=== PATIENT | female | born 1950 ===

== ENCOUNTER 2017-05-09 16:12 | Inpatient (IN) | payer MEDICARE, OTHER ==
[2017-05-09 16:12] VITALS: BMI 35.4
[~2017-05-09 16:12] MED LIST: Enoxaparin 40 mg Syringe SC ONE
--- NOTE | 2017-05-09 16:43 | C.PDOC ---
History Of Present Illness REFERRED DR MEYER FOR ADMISSION. PS INTERMIT CP X 3 MONTHS, PERSIST. CURRENTLY ASYMPT. LAST CARDIAC EVAL 4 YRS AGO. +ASSOC DIZZY, DIAPH. HO HTN UNCONTROLL DM, MR. ALSO W INTERMIT R LEG PAIN X 1 YR. STATES PMD. EXAM LUNGS NEG EXT GOOD PERFUSION, WARM NO EDEMA REMAINDER NEG Time Seen by Provider: 05/09/17 16:23 History Per: Patient History/Exam Limitations: no limitations Onset/Duration Of Symptoms: Intermittent Episodes Current Symptoms Are (Timing): Gone Associated Symptoms: Diaphoresis, Other (DIZZINESS) Recent travel outside of the [place]: No Past Medical History Reviewed: Historical Data, Nursing Documentation, Vital Signs Vital Signs: Last Vital Signs Temp 98.0 F 05/09/17 16:42 Pulse 77 05/09/17 17:44 Resp 18 05/09/17 17:44 BP 129/67 05/09/17 17:44 Pulse Ox 97 05/09/17 17:44 - Medical History PMH: Arthritis, Asthma, Diverticulitis, Fractures ( A CHILD L WRIST FX), Gastritis, HTN, Hypercholesterolemia, Osteoporosis Surgical History: Cholecystectomy - [facility] Procedures CORONAR ARTERIOGR-2 CATH (07/08/13) LEFT HEART CARDIAC CATH (07/08/13) LT HEART ANGIOCARDIOGRAM (07/08/13) Family History: States: Unknown Family Hx - Social History Hx Alcohol Use: No Hx Substance Use: No - Immunization History Hx Tetanus Toxoid Vaccination: No Hx Influenza Vaccination: No Hx Pneumococcal Vaccination: No Review Of Systems Except As Marked, All Systems Reviewed And Found Negative. Constitutional: Negative for: Fever, Chills Cardiovascular: Positive for: Chest Pain Respiratory: Negative for: Cough, Shortness of Breath, Wheezing Gastrointestinal: Negative for: Vomiting, Abdominal Pain Musculoskeletal: Positive for: Leg Pain Skin: Negative for: Rash Neurological: Positive for: Dizziness. Negative for: Weakness, Numbness Physical Exam - Physical Exam Appears: Non-toxic, No Acute Distress Skin: Normal Color, Warm, Dry Head: Atraumatic, Normacephalic Oral Mucosa: Moist Chest: Symmetrical Cardiovascular: Rhythm Regular Respiratory: Normal Breath Sounds, No Accessory Muscle Use, No Rales, No Rhonchi , No Wheezing Gastrointestinal/Abdominal: Soft, No Tenderness, No Guarding, No Rebound Back: Normal Inspection Extremity: Normal ROM, Capillary Refill (< 2 SEC.), Other (GOOD PERFUSION, WARM NO EDEMA) Neurological/Psych: Oriented x3, Normal Speech, Normal Cognition ED Course And Treatment - Laboratory Results Result Diagrams: 05/09/17 17:15 05/09/17 16:57 ECG: Interpreted By Me ECG Rhythm: Sinus Rhythm ECG Interpretation: Normal Rate From EC O2 Sat by Pulse Oximetry: 96 (RA) Pulse Ox Interpretation: Normal Progress - Re-Evaluation Re-evaluation Note: 05/09/17 16:50 D/W DR THOMAS WILL ADMIT. LABS PENDING 05/09/17 18:11 FS 36. D50 GIVEN - Data Reviewed Data Reviewed: Lab, Diagnostic imaging, EKG, Old records - Continuity of Care Discussed patient case with:: Patient, Family-HIPPA compliant, PMD Disposition Counseled Patient/Family Regarding: Studies Performed, Diagnosis - Disposition Disposition: HOSPITALIZED Disposition Time: 17:31 Condition: STABLE - POA Present On Arrival: None - Clinical Impression Clinical Impression: Chest pain, Left leg claudication - Scribe Statement The provider has reviewed the documentation as recorded by the Scribe SM All medical record entries made by the Scribe were at my direction and personally dictated by me. I have reviewed the chart and agree that the record accurately reflects my personal performance of the history, physical exam, medical decision making, and the department course for this patient. I have also personally directed, reviewed, and agree with the discharge instructions and disposition. Decision To Admit - Pt Status Changed To: Hospital Disposition Of: Inpatient - Admit Certification Admit to Inpatient:: After my assessment, the patient will require hospitalization for at least two midnights. This is because of the severity of symptoms shown, intensity of services needed, and/or the medical risk in this patient being treated as an outpatient. - InPatient: Physician Admission Certification: I certify that this patient requires 2 or more midnights of care for the following reason:: SEE NOTE - . Bed Request Type: Telemetry Admitting Physician: Soren Thomas Jr. Patient Diagnosis: Chest pain, Left leg claudication
[2017-05-09 17:09] LABS: CHLORIDE 101 mmol/L (98-107); SODIUM 139 mmol/L (132-148)
[2017-05-09 17:11] LABS: BILIRUBIN,TOTAL 1.5 mg/dL (0.2-1.3); GFR AFRICAN-AMERICAN > 60; POTASSIUM 5.2 mmol/L (3.6-5.2)
[2017-05-09 17:12] LABS: ALKALINE PHOSPHATASE 190 U/L (38-126); ALT/SGPT 57 U/L (9-52); AST/SGOT 78 U/L (14-36); BLOOD UREA NITROGEN 17 mg/dL (7-17); CARBON DIOXIDE 25 mmol/L (22-30); GLUCOSE,RANDOM 106 mg/dL (65-105); TOTAL PROTEIN 8.5 g/dL (6.3-8.3)
[2017-05-09 17:13] LABS: CALCIUM 9.4 mg/dl (8.6-10.4)
[2017-05-09 17:20] LABS: BASO # 0.1 K/uL (0.0-0.2); BASO % 0.6 % (0.0-2.0); EOS # 0.1 K/uL (0.0-0.7); EOS % 1.2 % (0.0-4.0); HEMATOCRIT 40.1 % (34.0-47.0); LYMPH # 3.7 K/uL (1.0-4.3); LYMPH % 36.2 % (20.0-40.0); MEAN CELL VOLUME 94.6 fL (81.0-99.0); MEAN CORPUSCULAR HEMOGLOBIN 31.8 pg (27.0-31.0); MEAN CORPUSCULAR HGB CONC 33.7 g/dL (33.0-37.0); MEAN PLATELET VOLUME 10.7 fL (7.2-11.7); MONO # 0.7 K/uL (0.0-0.8); MONO % 7.2 % (0.0-10.0); RED CELL DISTRIBUTION WIDTH 13.5 % (11.5-14.5); WHITE BLOOD COUNT 10.3 K/uL (4.8-10.8)
[2017-05-09 17:27] LABS: INR 1.1
[2017-05-09] MEDS ORDERED: Dextrose 50% SYRINGE Inj (50 ml) IVP STA (18:11)
[2017-05-09] MEDS ORDERED: Dextrose 50% SYRINGE Inj (50 ml) ONE (18:13)
--- NOTE | 2017-05-09 18:49 | RAD ---
HISTORY: chest pain COMPARISON: None available. TECHNIQUE: Chest, one view. FINDINGS: Examination limited by habitus. LUNGS: No focal consolidation. Probable 8 x 10 mm and 3 mm left apical calcified granuloma. Please note that chest x-ray has limited sensitivity for the detection of pulmonary masses. PLEURA: No significant pleural effusion identified. No definite pneumothorax . CARDIOVASCULAR: Heart size appears within normal limits. Atherosclerotic calcifications of the aorta. OSSEOUS STRUCTURES: Degenerative changes of the spine. VISUALIZED UPPER ABDOMEN: Unremarkable. OTHER FINDINGS: None. IMPRESSION: No focal consolidation, significant pleural effusion, or definite pneumothorax identified. Probable 8 x 10 mm and 3 mm left apical calcified granuloma.
[2017-05-09] MEDS ORDERED: PROPYLENE GLYC TP SCH (21:30)
[2017-05-09] MEDS ORDERED: Albuterol 0.083% Inhal Sol (2.5 mg/3 mL) UD IH PRN (21:30)
[2017-05-09] MEDS ORDERED: BETAMETHASONE TP SCH (21:30)
--- NOTE | 2017-05-09 21:55 | CP.PCM.HP ---
History of Present Illness - History of Present Illness History of Present Illness: PGY1 Note for Dr. Thomas HPI: Patient is a 66 y/o lady with a PMH of DM present to the ER with a CC of chest pain and SOB for 2 day duration. It gets better with SL Nitro and worse with walking. She describes the pain as someone pressing hard on her chest. It radiates to the L. shoulder and is intermittent in timing. She has had chest pain before but denies prior episodes like this. She is complaining of fevers, chills, nausea, cough, diaphoresis, SOB, dizzy, weakness, visual and speech changes (Slurring), confusion and a GUAJARDO. She is also complaining of abdominal pain and leg pain. She denies Vomiting, Diarrhea and constipation or rash. She denies sick contracts or recent travel. PMH: DM, osteoporosis, back pain, arthritis, and is on home O2 but does not know why PSH: Open bayron, hysterectomy, R. breast bx, L. Pinky surgery, Carpal tunnel surgery, R. ovarian cyst removed FH: mom = heart and kidney problems, Dad = heart problems SH: , lives with son, daughter and granddaughter; smoked 2-3ppd for 50 years but quit 8 years ago. Meds: Albuterol inhaler, ventolin HFA, Proair, alprazolam, betamethasone, flexeriol, voltaran, furosemide, Novolog 70/30, levoceterizine dihydrochloride, lidoderm patch, montelukast, SL nitro, oxycodone, valsartan Allergies: ASA Code: FULL CODE ROS: Const = 20lb WL in 3month HEENT = wears glasses, blurry vision Lungs = home 02 (2L) Heart = No echo, cath 4 years ago "normal" GI = endoscopy, colonoscopy 2-3y ago, diarrhea, constipation, occasionaly blood in stool Renal = none = blood in urine Breast = breast bx MSK = hx of falls, back pain, walks with a cane Neuro = denies CVA or seizures, + memory changes, weakness, numbness Endo = denies thyroid or adrenal problems, + DM Psych = denies recent hospitlizations Skin = no rashes Heme = anemia with a transfusion 20-30years ago secondary to heavy menstrual bleeding Onc = No history of cancer ID = Denies MRSA, c.diff, HIV Present on Admission - Present on Admission Any Indicators Present on Admission: No History of DVT/PE: No History of Uncontrolled Diabetes: Yes Urinary Catheter: No Decubitus Ulcer Present: No History Surgical Site Infection Following: None Review of Systems - Constitutional Constitutional: As Per HPI - EENT Eyes: As Per HPI Ears: As Per HPI Nose/Mouth/Throat: As Per HPI - Breasts Breasts: As Per HPI - Cardiovascular Cardiovascular: As Per HPI - Respiratory Respiratory: As Per HPI - Gastrointestinal Gastrointestinal: As Per HPI - Genitourinary Genitourinary: As Per HPI - Reproductive: Female Reproductive:Female: As Per HPI - Menstruation Menstruation: As Per HPI - Musculoskeletal Musculoskeletal: As Per HPI - Integumentary Integumentary: As Per HPI - Neurological Neurological: As Per HPI - Psychiatric Psychiatric: As Per HPI - Endocrine Endocrine: As Per HPI - Hematologic/Lymphatic Hematologic: As Per HPI Past Patient History - Tetanus Immunizations Tetanus Immunization: Unknown - Past Medical History & Family History Past Medical History?: Yes - Past Social History Smoking Status: Former Smoker - CARDIAC Hx Hypercholesterolemia: Yes Hx Hypertension: Yes - PULMONARY Hx Asthma: Yes - HEENT Hx HEENT Problems: Yes (blurry vision sometimes) - ENDOCRINE/METABOLIC Hx Endocrine Disorders: Yes Hx Diabetes Mellitus Type 2: Yes - MUSCULOSKELETAL/RHEUMATOLOGICAL Hx Arthritis: Yes Hx Fractures: Yes ( A CHILD L WRIST FX) Hx Osteoporosis: Yes - GASTROINTESTINAL Hx Diverticulitis: Yes Hx Gastritis: Yes - GENITOURINARY/GYNECOLOGICAL Hx Genitourinary Disorders: Yes Hx Urinary Tract Infection: Yes Other/Comment: CYSTS REMOVED BILATERAL BREASTS - PSYCHIATRIC Hx Substance Use: No - SURGICAL HISTORY Hx Cholecystectomy: Yes - ANESTHESIA Hx Anesthesia: Yes Hx Anesthesia Reactions: No Hx Malignant Hyperthermia: No Meds Allergies/Adverse Reactions: Allergies Allergy/AdvReac Type Severity Reaction Status Date / Time aspirin Allergy Verified 05/09/17 16:50 Physical Exam - Constitutional Appears: Well, Non-toxic, No Acute Distress - Head Exam Head Exam: ATRAUMATIC, NORMAL INSPECTION, NORMOCEPHALIC - Eye Exam Eye Exam: EOMI - ENT Exam ENT Exam: Mucous Membranes Moist - Neck Exam Neck exam: Positive for: Normal Inspection - Respiratory Exam Respiratory Exam: Clear to Auscultation Bilateral, NORMAL BREATHING PATTERN - Cardiovascular Exam Cardiovascular Exam: REGULAR RHYTHM - GI/Abdominal Exam GI & Abdominal Exam: Normal Bowel Sounds, Soft. absent: Distended, Tenderness - Neurological Exam Neurological exam: Alert, Oriented x3 Additional comments: numbness on L. great toe - Psychiatric Exam Psychiatric exam: Normal Affect, Normal Mood - Skin Skin Exam: Dry, Intact, Normal Color, Warm Results - Vital Signs Recent Vital Signs: Last Vital Signs Temp 97.6 F 05/09/17 20:39 Pulse 76 05/09/17 20:39 Resp 20 05/09/17 20:39 BP 147/77 05/09/17 20:39 Pulse Ox 96 05/09/17 20:39 - Labs Result Diagrams: 05/09/17 17:15 05/09/17 16:57 Labs: Laboratory Results - last 24 hr 05/09/17 05/09/17 18:12 18:45 POC Glucose (mg/dL) 38 L* 194 H Assessment & Plan - Assessment and Plan (Free Text) Assessment: Chest Pain * EZRA * First trop negative * F/U trop x2 * F/U EKG * Cards (Reed) - F/U reccs * Lovenox 40 SC One time in case Cath tomorrow SOB * Continue home meds * Proair HFA * Singulair * NC 02 2L DM * Sliding scale * Accuchecks * F/U A1c PPX * Pepcid 20mg BID * Lovenox - Date & Time Date: 05/09/17 Time: 23:47 Decision To Admit - Pt Status Changed To: Hospital Disposition Of: Inpatient - Admit Certification Admit to Inpatient:: After my assessment, the patient will require hospitalization for at least two midnights. This is because of the severity of symptoms shown, intensity of services needed, and/or the medical risk in this patient being treated as an outpatient. - InPatient: Physician Admission Certification:: . - . Bed Request Type: Telemetry Admitting Physician: Soren Thomas Jr.
[2017-05-09] MEDS: Lidocaine 5% Patch TD SCH (22:05)
[2017-05-09] MEDS ORDERED: Sodium Chloride 0.9% 1,000 ML IV SCH (22:15)
[2017-05-09] MEDS: Home Med 1 UNIT (Diclofenac Sodium [Voltaren] 100 GM) TP SCH (23:23)
[2017-05-10] MEDS: Home Med 1 UNIT (Diclofenac Sodium [Voltaren] 100 GM) TP SCH ×2 (04:02→09:15)
[2017-05-10 06:54] LABS: EOS # 0.1 K/uL (0.0-0.7); EOS % 1.3 % (0.0-4.0); MEAN CELL VOLUME 94.9 fL (81.0-99.0); MONO # 0.6 K/uL (0.0-0.8); NRBC % 0.1 % (0.0-2.0)
[2017-05-10 07:00] LABS: INR 1.1
[2017-05-10 07:01] LABS: BASO % 0.5 % (0.0-2.0); HEMATOCRIT 39.1 % (34.0-47.0); LYMPH % 34.7 % (20.0-40.0); MEAN CORPUSCULAR HEMOGLOBIN 31.6 pg (27.0-31.0); MEAN CORPUSCULAR HGB CONC 33.2 g/dL (33.0-37.0); MEAN PLATELET VOLUME 10.9 fL (7.2-11.7); MONO % 7.2 % (0.0-10.0); RED CELL DISTRIBUTION WIDTH 13.5 % (11.5-14.5); WHITE BLOOD COUNT 8.8 K/uL (4.8-10.8)
[2017-05-10 07:17] LABS: CHLORIDE 105 mmol/L (98-107)
[2017-05-10 07:18] LABS: POTASSIUM 4.1 mmol/L (3.6-5.2); SODIUM 138 mmol/L (132-148)
[2017-05-10 07:20] LABS: AST/SGOT 56 U/L (14-36); BILIRUBIN,TOTAL 0.6 mg/dL (0.2-1.3); CARBON DIOXIDE 25 mmol/L (22-30); GFR AFRICAN-AMERICAN > 60
[2017-05-10 07:21] LABS: ALKALINE PHOSPHATASE 194 U/L (38-126); ALT/SGPT 67 U/L (9-52); BLOOD UREA NITROGEN 14 mg/dL (7-17); CALCIUM 8.9 mg/dl (8.6-10.4); GLUCOSE,RANDOM 204 mg/dL (65-105)
[2017-05-10] MEDS ORDERED: (Novolin R) Insulin Human Regular 100 units/ml vial SC SCH (07:30)
--- NOTE | 2017-05-10 07:32 | CP.PCM.PN ---
<Carlos EnriqueJohanny elder - Last Filed: 05/10/17 09:23> Subjective - Date & Time of Evaluation Date of Evaluation: 05/10/17 Time of Evaluation: 07:00 - Subjective Subjective: Medicine Note for Dr. Thomas Patient was seen and examined at bedside. Patient reports she feels well. She has intermittent right sided chest pain. Denied fever, chills, headache, chest pain, abdominal pain, n/v/d/c, or urinary symptoms. Objective - Vital Signs/Intake and Output Vital Signs (last 24 hours): Temp Pulse Resp BP Pulse Ox 97.9 F 72 20 155/82 H 99 05/10/17 04:39 05/10/17 06:00 05/10/17 04:39 05/10/17 06:04 05/10/17 04:39 Intake and Output: 05/10/17 05/10/17 06:59 18:59 Intake Total 920 Balance 920 - Medications Medications: Current Medications Acetaminophen (Tylenol 325mg Tab) 650 mg PO Q6 PRN PRN Reason: Pain, moderate (4-7) Last Admin: 05/09/17 23:04 Dose: 650 mg Albuterol Sulfate (Albuterol 0.083% Inhal Kassie (2.5 Mg/3 Ml) Ud) 2.5 mg IH Q8H PRN PRN Reason: Shortness of Breath Cyclobenzaprine HCl (Flexeril) 10 mg PO Q8H PRN PRN Reason: spasm Last Admin: 05/09/17 22:05 Dose: 10 mg Docusate Sodium (Colace) 100 mg PO BID PRN PRN Reason: Constipation Famotidine (Pepcid) 20 mg PO BID [facility] Last Admin: 05/09/17 23:04 Dose: 20 mg Furosemide (Lasix) 40 mg PO DAILY [facility] Home Med (Betamethasone/Propylene Glyc [Betamethasone Dp Aug 0.05% Crm]) 50 gm TP BID [facility] Last Admin: 05/09/17 23:22 Dose: Not Given Home Med (Diclofenac Sodium [Voltaren]) 100 gm TP Q6H [facility] Last Admin: 05/10/17 04:02 Dose: Not Given Sodium Chloride (Sodium Chloride 0.9%) 1,000 mls @ 100 mls/hr IV .Q10H [facility] Last Admin: 05/09/17 23:05 Dose: 100 mls/hr Insulin Human Regular (Novolin R) 0 unit SC ACHS [facility] PRN Reason: Protocol Lidocaine (Lidoderm) 1 ea TD Q24H [facility] Last Admin: 05/09/17 22:05 Dose: 1 ea Losartan Potassium (Cozaar) 100 mg PO DAILY [facility] Metoprolol Tartrate (Lopressor) 25 mg PO Q6 [facility] Last Admin: 05/10/17 06:04 Dose: 25 mg Montelukast Sodium (Singulair) 10 mg PO DAILY [facility] Nitroglycerin (Nitrostat Sl Tab) 0.4 mg SL Q5M PRN PRN Reason: chest pain Ondansetron HCl (Zofran Inj) 4 mg IVP Q6 PRN PRN Reason: Nausea/Vomiting - Labs Labs: 05/10/17 06:39 PT 12.2 SECONDS (9.7-12.2) 05/10/17 06:39 INR 1.1 05/10/17 06:39 APTT 30 SECONDS (21-34) 05/10/17 06:39 - Constitutional Appears: No Acute Distress - Head Exam Head Exam: NORMAL INSPECTION, NORMOCEPHALIC - Eye Exam Eye Exam: EOMI, Normal appearance, PERRL Pupil Exam: NORMAL ACCOMODATION - ENT Exam ENT Exam: Mucous Membranes Dry - Respiratory Exam Respiratory Exam: Clear to Ausculation Bilateral, NORMAL BREATHING PATTERN. absent: Decreased Breath Sounds - Cardiovascular Exam Cardiovascular Exam: REGULAR RHYTHM, RRR, +S1, +S2 - GI/Abdominal Exam GI & Abdominal Exam: Soft, Normal Bowel Sounds. absent: Distended, Tenderness - Extremities Exam Extremities Exam: Normal Inspection. absent: Pedal Edema, Tenderness - Neurological Exam Neurological Exam: Alert, Awake, Oriented x3 - Psychiatric Exam Psychiatric exam: Normal Affect, Normal Mood - Skin Skin Exam: Dry, Intact, Normal Color, Warm Assessment and Plan - Assessment and Plan (Free Text) Plan: Chest Pain r/o ACS * EZRA x3 - negative and 3 EKGs - NSR * Patient with unstable angina, sent from Dr. Mcbride's office * Cardiology consulted - Dr. Mcbride - help appreciated * Nitrostat 0.4mg SL Q5M PRN for chest pain * ECHO 11/2014- LVEF 67% * Cardiac Cath tomorrow * f/u lipid panel, ECHO Transaminitis * 78/57 * Downtrending today * Continue to monitor DM * Accuchecks * ISS-medium * Patient takes 65units of novolog 65 units BIDAC * A1c: 9.1 HTN * Lasix 40mg PO daily * Cozaar 100mg PO daily * Lopressor 25mg PO Q6H SOB * Continue home meds: Proair HFA, Singulair and oxygen NC 2L * (patient is on home O2) Chronic Back Pain * Flexeril 10mg PO Q8H PRN Incidental finding on CXR * Probable 8 x 10 x 3 mm left apical calcified granuloma PPX * GI PPX: Pepcid 20mg BID * DVT PPX: Heparin [id number] * HHD, NPO tonight for cath tomorrow DW Ligia Berry DO, PGY-1 <Soren Thomas Jr. - Last Filed: 05/11/17 16:07> Objective - Vital Signs/Intake and Output Vital Signs (last 24 hours): Temp Pulse Resp BP Pulse Ox 98.2 F 62 17 111/67 96 05/11/17 07:40 05/11/17 08:27 05/11/17 07:40 05/11/17 07:40 05/11/17 07:40 Intake and Output: 05/11/17 05/11/17 06:59 18:59 Intake Total 580 Balance 580 - Medications Medications: Current Medications Acetaminophen (Tylenol 325mg Tab) 650 mg PO Q6 PRN PRN Reason: Pain, moderate (4-7) Last Admin: 05/09/17 23:04 Dose: 650 mg Albuterol Sulfate (Albuterol 0.083% Inhal Kassie (2.5 Mg/3 Ml) Ud) 2.5 mg IH Q8H PRN PRN Reason: Shortness of Breath Clopidogrel Bisulfate (Plavix) 75 mg PO DAILY [facility] Cyclobenzaprine HCl (Flexeril) 10 mg PO Q8H PRN PRN Reason: spasm Last Admin: 05/11/17 00:13 Dose: 10 mg Docusate Sodium (Colace) 100 mg PO BID PRN PRN Reason: Constipation Last Admin: 05/10/17 09:12 Dose: 100 mg Famotidine (Pepcid) 20 mg PO BID [facility] Last Admin: 05/11/17 10:15 Dose: Not Given Furosemide (Lasix) 40 mg PO DAILY [facility] Last Admin: 05/11/17 10:15 Dose: Not Given Heparin Sodium (Porcine) (Heparin) 5,000 units SC Q12 [facility] Last Admin: 05/10/17 21:39 Dose: 5,000 units Home Med (Betamethasone/Propylene Glyc [Betamethasone Dp Aug 0.05% Crm]) 50 gm TP BID [facility] Last Admin: 05/09/17 23:22 Dose: Not Given Home Med (Diclofenac Sodium [Voltaren]) 100 gm TP Q6H [facility] Last Admin: 05/10/17 09:15 Dose: Not Given Sodium Chloride (Sodium Chloride 0.9%) 1,000 mls @ 80 mls/hr IV .[id number] [facility] Stop: 05/12/17 02:00 Insulin Human Regular (Novolin R) 0 unit SC ACHS [facility] PRN Reason: Protocol Last Admin: 05/11/17 11:54 Dose: Not Given Lidocaine (Lidoderm) 1 ea TD Q24H [facility] Last Admin: 05/10/17 21:38 Dose: Not Given Losartan Potassium (Cozaar) 100 mg PO DAILY [facility] Last Admin: 05/11/17 10:15 Dose: Not Given Metoprolol Tartrate (Lopressor) 25 mg PO Q6 [facility] Last Admin: 05/11/17 12:45 Dose: Not Given Montelukast Sodium (Singulair) 10 mg PO DAILY [facility] Last Admin: 05/11/17 10:15 Dose: Not Given Nitroglycerin (Nitrostat Sl Tab) 0.4 mg SL Q5M PRN PRN Reason: chest pain Last Admin: 05/10/17 11:59 Dose: 0.4 mg Ondansetron HCl (Zofran Inj) 4 mg IVP Q6 PRN PRN Reason: Nausea/Vomiting Rosuvastatin Calcium (Crestor) 10 mg PO HS [facility] - Labs Labs: 05/11/17 07:00 05/11/17 07:00 PT 12.2 SECONDS (9.7-12.2) 05/10/17 06:39 INR 1.1 05/10/17 06:39 APTT 30 SECONDS (21-34) 05/10/17 06:39 Attending/Attestation - Attestation I have personally seen and examined this patient.: Yes I have fully participated in the care of the patient.: Yes I have reviewed all pertinent clinical information, including history, physical exam and plan: Yes Notes (Text): 05/11/17 16:07 Agree with resident note and plan of care
[2017-05-10 07:33] LABS: ALB/GLOB RATIO 0.8 (1.0-2.1)
--- NOTE | 2017-05-10 08:44 | CP.PCM.CON ---
<StevenModesto mosqueda - Last Filed: 05/10/17 16:55> History of Present Illness - History of Present Illness History of Present Illness: CC: Chest pain at rest relieved by sublingual nitro Patient is a 66 y/o f with a PMH of DM, COPD, HLD, HTN, Metabolic Syndrome, Morbid Obesity, previous Cath and abnormal lexiscan sent from the cardiology clinic with a CC of chest pain and SOB for 3months. It gets better with SL Nitro and worse with walking; admits to not being able to lie flat and needing 4 pillows to sleep. She describes the pain as someone pressing hard on her chest. It radiates to the L. shoulder and is intermittent in timing. She states it is also associated with nausea and diaphoresis when it happens. She has had chest pain before but denies prior episodes like this. She is not complaining of current fevers, chills, nausea, cough, diaphoresis, SOB, dizzy, weakness, visual and speech changes (Slurring), confusion and a GUAJARDO. She is also complaining of abdominal pain and leg pain. She denies Vomiting, Diarrhea and constipation or rash. She denies sick contracts or recent travel. PMH: DM on insulin, osteoporosis, back pain, arthritis, and is on home O2, HTN, HLD PSH: Open bayron, hysterectomy, R. breast bx, L. Pinky surgery, Carpal tunnel surgery, R. ovarian cyst removed, cath 4 years ago with normal results and preserved EF, abnormal lexiscan/nuclear stress previous to that FH: mom = heart and kidney problems, Dad = heart problems SH: , lives with son, daughter and granddaughter; smoked 2-3ppd for 50 years but quit 8 years ago. Meds: Albuterol inhaler, ventolin HFA, Proair, alprazolam, betamethasone, flexeriol, voltaran, furosemide, Novolog 70/30, levoceterizine dihydrochloride, lidoderm patch, montelukast, SL nitro, oxycodone, valsartan Allergies: ASA (upets stomach) Code: FULL CODE Review of Systems - Constitutional Constitutional: As Per HPI Past Patient History - Infectious Disease Hx of Infectious Diseases: None - Tetanus Immunizations Tetanus Immunization: Unknown - Past Medical History & Family History Past Medical History?: Yes - Past Social History Smoking Status: Former Smoker - CARDIAC Hx Hypercholesterolemia: Yes Hx Hypertension: Yes - PULMONARY Hx Asthma: Yes - HEENT Hx HEENT Problems: Yes (blurry vision sometimes) - ENDOCRINE/METABOLIC Hx Endocrine Disorders: Yes Hx Diabetes Mellitus Type 2: Yes - MUSCULOSKELETAL/RHEUMATOLOGICAL Hx Arthritis: Yes Hx Fractures: Yes ( A CHILD L WRIST FX) Hx Osteoporosis: Yes - GASTROINTESTINAL Hx Diverticulitis: Yes Hx Gastritis: Yes - GENITOURINARY/GYNECOLOGICAL Hx Genitourinary Disorders: Yes Hx Urinary Tract Infection: Yes Other/Comment: CYSTS REMOVED BILATERAL BREASTS - PSYCHIATRIC Hx Substance Use: No - SURGICAL HISTORY Hx Cholecystectomy: Yes - ANESTHESIA Hx Anesthesia: Yes Hx Anesthesia Reactions: No Hx Malignant Hyperthermia: No Meds Allergies/Adverse Reactions: Allergies Allergy/AdvReac Type Severity Reaction Status Date / Time aspirin Allergy Verified 05/09/17 16:50 - Medications Medications: Current Medications Acetaminophen (Tylenol 325mg Tab) 650 mg PO Q6 PRN PRN Reason: Pain, moderate (4-7) Last Admin: 05/09/17 23:04 Dose: 650 mg Albuterol Sulfate (Albuterol 0.083% Inhal Kassie (2.5 Mg/3 Ml) Ud) 2.5 mg IH Q8H PRN PRN Reason: Shortness of Breath Cyclobenzaprine HCl (Flexeril) 10 mg PO Q8H PRN PRN Reason: spasm Last Admin: 05/09/17 22:05 Dose: 10 mg Docusate Sodium (Colace) 100 mg PO BID PRN PRN Reason: Constipation Famotidine (Pepcid) 20 mg PO BID [facility] Last Admin: 05/09/17 23:04 Dose: 20 mg Furosemide (Lasix) 40 mg PO DAILY [facility] Heparin Sodium (Porcine) (Heparin) 5,000 units SC Q12 [facility] Home Med (Betamethasone/Propylene Glyc [Betamethasone Dp Aug 0.05% Crm]) 50 gm TP BID [facility] Last Admin: 05/09/17 23:22 Dose: Not Given Home Med (Diclofenac Sodium [Voltaren]) 100 gm TP Q6H [facility] Last Admin: 05/10/17 04:02 Dose: Not Given Insulin Human Regular (Novolin R) 0 unit SC ACHS [facility] PRN Reason: Protocol Lidocaine (Lidoderm) 1 ea TD Q24H [facility] Last Admin: 05/09/17 22:05 Dose: 1 ea Losartan Potassium (Cozaar) 100 mg PO DAILY [facility] Metoprolol Tartrate (Lopressor) 25 mg PO Q6 [facility] Last Admin: 05/10/17 06:04 Dose: 25 mg Montelukast Sodium (Singulair) 10 mg PO DAILY [facility] Nitroglycerin (Nitrostat Sl Tab) 0.4 mg SL Q5M PRN PRN Reason: chest pain Ondansetron HCl (Zofran Inj) 4 mg IVP Q6 PRN PRN Reason: Nausea/Vomiting Physical Exam - Constitutional Appears: Non-toxic - Head Exam Head Exam: ATRAUMATIC - Eye Exam Eye Exam: EOMI - ENT Exam ENT Exam: Mucous Membranes Moist - Neck Exam Neck exam: Positive for: Full Rom. Negative for: Lymphadenopathy Additional comments: thick neck - Respiratory Exam Additional comments: b/l crackles - Cardiovascular Exam Cardiovascular Exam: REGULAR RHYTHM, +S1, +S2 - GI/Abdominal Exam GI & Abdominal Exam: Normal Bowel Sounds, Soft - Extremities Exam Extremities exam: Positive for: full ROM, pedal edema (+2 pitting edema up to knees). Negative for: calf tenderness - Back Exam Back exam: NORMAL INSPECTION. absent: CVA tenderness (L), CVA tenderness (R) - Neurological Exam Neurological exam: Alert, Oriented x3 - Psychiatric Exam Psychiatric exam: Normal Affect - Skin Skin Exam: Warm Results - Vital Signs Recent Vital Signs: Last Vital Signs Temp 98.3 F 05/10/17 07:15 Pulse 64 05/10/17 07:15 Resp 18 05/10/17 07:15 BP 156/83 H 05/10/17 07:15 Pulse Ox 97 05/10/17 07:15 - Labs Result Diagrams: 05/10/17 06:39 05/10/17 06:39 Labs: Laboratory Results - last 24 hr 05/09/17 05/09/17 05/09/17 18:12 18:45 21:26 WBC RBC Hgb Hct MCV MCH MCHC RDW Plt Count MPV Neut % (Auto) Lymph % (Auto) [place] % (Auto) Eos % (Auto) Baso % (Auto) Neut # Lymph # [place] # Eos # Baso # PT INR APTT Sodium Potassium Chloride Carbon Dioxide Anion Gap BUN Creatinine Est GFR ( Amer) Est GFR (Non-Af Amer) POC Glucose (mg/dL) 38 L* 194 H 202 H Random Glucose Calcium Total Bilirubin AST ALT Alkaline Phosphatase Troponin I Total Protein Albumin Globulin Albumin/Globulin Ratio 05/09/17 05/10/17 05/10/17 22:43 06:19 06:39 WBC 8.8 RBC 4.11 Hgb 13.0 Hct 39.1 MCV 94.9 MCH 31.6 H MCHC 33.2 RDW 13.5 Plt Count 129 L MPV 10.9 Neut % (Auto) 56.3 Lymph % (Auto) 34.7 [place] % (Auto) 7.2 Eos % (Auto) 1.3 Baso % (Auto) 0.5 Neut # 4.9 Lymph # 3.0 [place] # 0.6 Eos # 0.1 Baso # 0.0 PT INR APTT Sodium Potassium Chloride Carbon Dioxide Anion Gap BUN Creatinine Est GFR ( Amer) Est GFR (Non-Af Amer) POC Glucose (mg/dL) 202 H Random Glucose Calcium Total Bilirubin AST ALT Alkaline Phosphatase Troponin I < 0.0120 Total Protein Albumin Globulin Albumin/Globulin Ratio 05/10/17 05/10/17 05/10/17 06:39 06:39 06:39 WBC RBC Hgb Hct MCV MCH MCHC RDW Plt Count MPV Neut % (Auto) Lymph % (Auto) [place] % (Auto) Eos % (Auto) Baso % (Auto) Neut # Lymph # [place] # Eos # Baso # PT 12.2 INR 1.1 APTT 30 Sodium 138 Potassium 4.1 Chloride 105 Carbon Dioxide 25 Anion Gap 13 BUN 14 Creatinine 0.7 Est GFR ( Amer) > 60 Est GFR (Non-Af Amer) > 60 POC Glucose (mg/dL) Random Glucose 204 H Calcium 8.9 Total Bilirubin 0.6 AST 56 H D ALT 67 H Alkaline Phosphatase 194 H Troponin I < 0.0120 Total Protein 7.0 Albumin 3.2 L D Globulin 3.8 Albumin/Globulin Ratio 0.8 L Assessment & Plan - Assessment and Plan (Free Text) Assessment: 66F admitted for unstable angina for possible Cath Unstable Angina EZRA negative times three High risk for CAD given comorbidities Possible Cath Friday 05/11; will keep NPO at midnight tonight f/u lipid panel, echo, HbA1C, and BNP Other management as per primary medical team Dr. Modesto Anderson PGY2 Cardiology for Dr. Mcbride Case Discussed with Dr. Mcbride <Goran Mcbride - Last Filed: 05/10/17 23:31> Meds - Medications Medications: Current Medications Acetaminophen (Tylenol 325mg Tab) 650 mg PO Q6 PRN PRN Reason: Pain, moderate (4-7) Last Admin: 05/09/17 23:04 Dose: 650 mg Albuterol Sulfate (Albuterol 0.083% Inhal Kassie (2.5 Mg/3 Ml) Ud) 2.5 mg IH Q8H PRN PRN Reason: Shortness of Breath Cyclobenzaprine HCl (Flexeril) 10 mg PO Q8H PRN PRN Reason: spasm Last Admin: 05/09/17 22:05 Dose: 10 mg Docusate Sodium (Colace) 100 mg PO BID PRN PRN Reason: Constipation Last Admin: 05/10/17 09:12 Dose: 100 mg Famotidine (Pepcid) 20 mg PO BID [facility] Last Admin: 05/10/17 17:35 Dose: 20 mg Furosemide (Lasix) 40 mg PO DAILY [facility] Last Admin: 05/10/17 09:13 Dose: 40 mg Heparin Sodium (Porcine) (Heparin) 5,000 units SC Q12 [facility] Last Admin: 05/10/17 21:39 Dose: 5,000 units Home Med (Betamethasone/Propylene Glyc [Betamethasone Dp Aug 0.05% Crm]) 50 gm TP BID [facility] Last Admin: 05/09/17 23:22 Dose: Not Given Home Med (Diclofenac Sodium [Voltaren]) 100 gm TP Q6H [facility] Last Admin: 05/10/17 09:15 Dose: Not Given Insulin Human Regular (Novolin R) 0 unit SC ACHS [facility] PRN Reason: Protocol Last Admin: 05/10/17 21:38 Dose: Not Given Lidocaine (Lidoderm) 1 ea TD Q24H [facility] Last Admin: 05/10/17 21:38 Dose: Not Given Losartan Potassium (Cozaar) 100 mg PO DAILY [facility] Last Admin: 05/10/17 09:14 Dose: 100 mg Metoprolol Tartrate (Lopressor) 25 mg PO Q6 [facility] Last Admin: 05/10/17 17:35 Dose: 25 mg Montelukast Sodium (Singulair) 10 mg PO DAILY [facility] Last Admin: 05/10/17 09:19 Dose: 10 mg Nitroglycerin (Nitrostat Sl Tab) 0.4 mg SL Q5M PRN PRN Reason: chest pain Last Admin: 05/10/17 11:59 Dose: 0.4 mg Ondansetron HCl (Zofran Inj) 4 mg IVP Q6 PRN PRN Reason: Nausea/Vomiting Results - Vital Signs Recent Vital Signs: Last Vital Signs Temp 97.5 F L 05/10/17 15:29 Pulse 73 05/10/17 16:00 Resp 20 05/10/17 15:29 BP 124/70 05/10/17 17:35 Pulse Ox 99 05/10/17 15:29 - Labs Result Diagrams: 05/10/17 06:39 05/10/17 06:39 Labs: Laboratory Results - last 24 hr 05/10/17 05/10/17 05/10/17 06:19 06:39 06:39 WBC 8.8 RBC 4.11 Hgb 13.0 Hct 39.1 MCV 94.9 MCH 31.6 H MCHC 33.2 RDW 13.5 Plt Count 129 L MPV 10.9 Neut % (Auto) 56.3 Lymph % (Auto) 34.7 [place] % (Auto) 7.2 Eos % (Auto) 1.3 Baso % (Auto) 0.5 Neut # 4.9 Lymph # 3.0 [place] # 0.6 Eos # 0.1 Baso # 0.0 Differential Comment PT 12.2 INR 1.1 APTT 30 Sodium Potassium Chloride Carbon Dioxide Anion Gap BUN Creatinine Est GFR ( Amer) Est GFR (Non-Af Amer) POC Glucose (mg/dL) 202 H Random Glucose Hemoglobin A1c Calcium Total Bilirubin AST ALT Alkaline Phosphatase Troponin I NT-Pro-B Natriuret Pep Total Protein Albumin Globulin Albumin/Globulin Ratio 05/10/17 05/10/17 05/10/17 06:39 06:39 06:39 WBC RBC Hgb Hct MCV MCH MCHC RDW Plt Count MPV Neut % (Auto) Lymph % (Auto) [place] % (Auto) Eos % (Auto) Baso % (Auto) Neut # Lymph # [place] # Eos # Baso # Differential Comment PT INR APTT Sodium 138 Potassium 4.1 Chloride 105 Carbon Dioxide 25 Anion Gap 13 BUN 14 Creatinine 0.7 Est GFR ( Amer) > 60 Est GFR (Non-Af Amer) > 60 POC Glucose (mg/dL) Random Glucose 204 H Hemoglobin A1c 9.1 H D Calcium 8.9 Total Bilirubin 0.6 AST 56 H D ALT 67 H Alkaline Phosphatase 194 H Troponin I < 0.0120 NT-Pro-B Natriuret Pep 60.3 Total Protein 7.0 Albumin 3.2 L D Globulin 3.8 Albumin/Globulin Ratio 0.8 L 05/10/17 05/10/17 05/10/17 11:53 16:50 21:08 WBC RBC Hgb Hct MCV MCH MCHC RDW Plt Count MPV Neut % (Auto) Lymph % (Auto) [place] % (Auto) Eos % (Auto) Baso % (Auto) Neut # Lymph # [place] # Eos # Baso # Differential Comment PT INR APTT Sodium Potassium Chloride Carbon Dioxide Anion Gap BUN Creatinine Est GFR ( Amer) Est GFR (Non-Af Amer) POC Glucose (mg/dL) 199 H 256 H 275 H Random Glucose Hemoglobin A1c Calcium Total Bilirubin AST ALT Alkaline Phosphatase Troponin I NT-Pro-B Natriuret Pep Total Protein Albumin Globulin Albumin/Globulin Ratio Assessment & Plan - Assessment and Plan (Free Text) Assessment: Patient seen and evaluated with the medical massage therapist Plan of care as above
[2017-05-10] MEDS: (Novolin R) Insulin Human Regular 100 units/ml vial SC SCH ×3 (12:30→21:38)
[2017-05-10] MEDS: Lidocaine 5% Patch TD SCH ×2 (16:29→21:38)
--- NOTE | 2017-05-10 18:57 | CARD ---
APPROVED REPORT EXAM: Two-dimensional and M-mode echocardiogram with Doppler and color Doppler. Other Information Quality : GoodRhythm : NSR INDICATION Dyspnea Chest Pain RISK FACTORS Diabetes 2D DIMENSIONS IVSd0.8 (0.7-1.1cm)LVDd5.1 (3.9-5.9cm) PWd0.7 (0.7-1.1cm) M-Mode DIMENSIONS Left Atrium (MM)3.46 (2.5-4.0cm)Aortic Root2.73 (2.2-3.7cm) Aortic Cusp Exc.1.79 (1.5-2.0cm) Mitral Valve MV E Rooceqdi974.7cm/sMV A Igqdtrpw83.1cm/sE/A ratio1.2 TDI E/Lateral E'0.0E/Medial E'0.0 Tricuspid Valve TR Peak Qeqwvbyp590tk/sTR Peak Gr.30gwKtQFVH15lqWq <Conclusion> tds. poor window. visually la,lv & ra rv size appears normal. normal lv wall motion,thickness & systolic funciton with lvef of 65-70%. mildly elevated la pressures. sclerotic trileaflet aortic valve. mitral,tv appears normal. pv not well seen but probably normal. mild mr,tr with upper normal pulonary systolic pressures of 35 mm of hg. no pericardial effusion. sclerotic normal size aortic root.
[2017-05-11 06:08] LABS: RBC URINE 1 /hpf (0-3); URINE BACTERIA RARE (<OCC); URINE BILIRUBIN NEGATIVE (NEGATIVE); URINE BLOOD NEGATIVE (NEGATIVE); URINE COLOR Yellow (YELLOW); URINE GLUCOSE (UA) 3+ mg/dL (Normal); URINE KETONE NEGATIVE (NEGATIVE); URINE LEUKOCYTE ESTERASE NEG Leu/uL (Negative); URINE PROTEIN NEGATIVE (NEGATIVE); WBC URINE 1 /hpf (0-5)
[2017-05-11 07:26] LABS: BASO % 0.4 % (0.0-2.0); EOS # 0.2 K/uL (0.0-0.7); EOS % 1.6 % (0.0-4.0); HEMATOCRIT 41.8 % (34.0-47.0); LYMPH # 4.2 K/uL (1.0-4.3); LYMPH % 36.6 % (20.0-40.0); MEAN CELL VOLUME 94.6 fL (81.0-99.0); MEAN CORPUSCULAR HEMOGLOBIN 31.5 pg (27.0-31.0); MEAN CORPUSCULAR HGB CONC 33.3 g/dL (33.0-37.0); MEAN PLATELET VOLUME 11.1 fL (7.2-11.7); MONO # 0.8 K/uL (0.0-0.8); MONO % 6.9 % (0.0-10.0); RED CELL DISTRIBUTION WIDTH 13.7 % (11.5-14.5); WHITE BLOOD COUNT 11.4 K/uL (4.8-10.8)
[2017-05-11 07:42] LABS: CHLORIDE 100 mmol/L (98-107)
[2017-05-11 07:43] LABS: SODIUM 140 mmol/L (132-148)
[2017-05-11 07:44] LABS: POTASSIUM 4.1 mmol/L (3.6-5.2)
[2017-05-11 07:45] LABS: CHOLESTEROL 239 mg/dL (0-199)
[2017-05-11 07:46] LABS: ALB/GLOB RATIO 0.9 (1.0-2.1); ALKALINE PHOSPHATASE 205 U/L (38-126); ALT/SGPT 72 U/L (9-52); AST/SGOT 47 U/L (14-36); BILIRUBIN,TOTAL 0.8 mg/dL (0.2-1.3); BLOOD UREA NITROGEN 16 mg/dL (7-17); CARBON DIOXIDE 28 mmol/L (22-30); GFR AFRICAN-AMERICAN > 60; GLUCOSE,RANDOM 173 mg/dL (65-105); TOTAL PROTEIN 7.9 g/dL (6.3-8.3)
[2017-05-11 07:47] LABS: CALCIUM 9.3 mg/dl (8.6-10.4); MAGNESIUM 1.6 mg/dL (1.6-2.3); PHOSPHOROUS 3.9 mg/dL (2.5-4.5)
[2017-05-11] MEDS: (Novolin R) Insulin Human Regular 100 units/ml vial SC SCH ×3 (08:14→17:00)
--- NOTE | 2017-05-11 12:26 | CARD ---
APPROVED REPORT EKG Measurement Heart [id number] <Conclusion> Normal sinus rhythm Normal ECG
[2017-05-11] MEDS ORDERED: Midazolam 2 MG/2 ML VIAL ONE (12:38)
[2017-05-11] MEDS ORDERED: Iodixanol 320 MG/ML 200 ML BOTTLE IV ONE (12:39)
[2017-05-11] MEDS ORDERED: Nitroglycerin 50mg in D5W 50 MG/250 ML BOTTLE IV ONE (12:39)
[2017-05-11] MEDS ORDERED: Iohexol 350mg/ml 100 ML ONE ×2 (12:40→13:53)
[2017-05-11] MEDS ORDERED: Sodium Chloride 0.9% 1,000 ML IV SCH (14:00)
--- NOTE | 2017-05-11 15:44 | CP.PCM.DIS ---
Provider - Provider Date of Admission: 05/09/17 17:31 Attending physician: Soren Thomas Jr, MD Time Spent in preparation of Discharge (in minutes): 55 Hospital Course - Lab Results Lab Results: Most Recent Lab Values WBC 11.4 K/uL (4.8-10.8) H 05/11/17 07:00 RBC 4.42 Mil/uL (3.80-5.20) 05/11/17 07:00 Hgb 13.9 g/dL (11.0-16.0) 05/11/17 07:00 Hct 41.8 % (34.0-47.0) 05/11/17 07:00 MCV 94.6 fL (81.0-99.0) 05/11/17 07:00 MCH 31.5 pg (27.0-31.0) H 05/11/17 07:00 MCHC 33.3 g/dL (33.0-37.0) 05/11/17 07:00 RDW 13.7 % (11.5-14.5) 05/11/17 07:00 Plt Count 159 K/uL (130-400) 05/11/17 07:00 MPV 11.1 fL (7.2-11.7) 05/11/17 07:00 Neut % (Auto) 54.5 % (50.0-75.0) 05/11/17 07:00 Lymph % (Auto) 36.6 % (20.0-40.0) 05/11/17 07:00 [place] % (Auto) 6.9 % (0.0-10.0) 05/11/17 07:00 Eos % (Auto) 1.6 % (0.0-4.0) 05/11/17 07:00 Baso % (Auto) 0.4 % (0.0-2.0) 05/11/17 07:00 Neut # 6.2 K/uL (1.8-7.0) 05/11/17 07:00 Lymph # 4.2 K/uL (1.0-4.3) 05/11/17 07:00 [place] # 0.8 K/uL (0.0-0.8) 05/11/17 07:00 Eos # 0.2 K/uL (0.0-0.7) 05/11/17 07:00 Baso # 0.0 K/uL (0.0-0.2) 05/11/17 07:00 Differential Comment 05/10/17 06:39 PT 12.2 SECONDS (9.7-12.2) 05/10/17 06:39 INR 1.1 05/10/17 06:39 APTT 30 SECONDS (21-34) 05/10/17 06:39 Sodium 140 mmol/L (132-148) 05/11/17 07:00 Potassium 4.1 mmol/L (3.6-5.2) 05/11/17 07:00 Chloride 100 mmol/L (98-107) 05/11/17 07:00 Carbon Dioxide 28 mmol/L (22-30) 05/11/17 07:00 Anion Gap 17 (10-20) 05/11/17 07:00 BUN 16 mg/dL (7-17) 05/11/17 07:00 Creatinine 0.8 MG/DL (0.7-1.2) 05/11/17 07:00 Est GFR ( Amer) > 60 05/11/17 07:00 Est GFR (Non-Af Amer) > 60 05/11/17 07:00 POC Glucose (mg/dL) 150 mg/dL (65-110) H 05/11/17 06:39 Random Glucose 173 mg/dL (65-105) H 05/11/17 07:00 Hemoglobin A1c 9.1 % (4.2-6.5) H D 05/10/17 06:39 Calcium 9.3 mg/dl (8.6-10.4) 05/11/17 07:00 Phosphorus 3.9 mg/dL (2.5-4.5) 05/11/17 07:00 Magnesium 1.6 mg/dL (1.6-2.3) 05/11/17 07:00 Total Bilirubin 0.8 mg/dL (0.2-1.3) 05/11/17 07:00 AST 47 U/L (14-36) H 05/11/17 07:00 ALT 72 U/L (9-52) H 05/11/17 07:00 Alkaline Phosphatase 205 U/L (38-126) H 05/11/17 07:00 Troponin I < 0.0120 ng/mL (0.00-0.120) 05/10/17 06:39 NT-Pro-B Natriuret Pep 60.3 pg/mL (0-900) 05/10/17 06:39 Total Protein 7.9 g/dL (6.3-8.3) 05/11/17 07:00 Albumin 3.8 g/dL (3.5-5.0) 05/11/17 07:00 Globulin 4.1 gm/dL (2.2-3.9) H 05/11/17 07:00 Albumin/Globulin Ratio 0.9 (1.0-2.1) L 05/11/17 07:00 Triglycerides 128 mg/dL (0-149) D 05/11/17 07:00 Cholesterol 239 mg/dL (0-199) H 05/11/17 07:00 LDL Cholesterol Direct 133 mg/dL (0-129) H 05/11/17 07:00 HDL Cholesterol 75 mg/dL (30-70) H 05/11/17 07:00 Urine Color Yellow (YELLOW) 05/11/17 06:01 Urine Clarity Clear (Clear) 05/11/17 06:01 Urine pH 6.0 (5.0-8.0) 05/11/17 06:01 Ur Specific [place] 1.025 (1.003-1.030) 05/11/17 06:01 Urine Protein Negative mg/dL (NEGATIVE) 05/11/17 06:01 Urine Glucose (UA) 3+ mg/dL (Normal) H 05/11/17 06:01 Urine Ketones Negative mg/dL (NEGATIVE) 05/11/17 06:01 Urine Blood Negative (NEGATIVE) 05/11/17 06:01 Urine Nitrate Negative (NEGATIVE) 05/11/17 06:01 Urine Bilirubin Negative (NEGATIVE) 05/11/17 06:01 Urine Urobilinogen 2.0 mg/dL (0.2-1.0) H 05/11/17 06:01 Ur Leukocyte Esterase Neg Nicole/uL (Negative) 05/11/17 06:01 Urine WBC (Auto) 1 /hpf (0-5) 05/11/17 06:01 Urine RBC (Auto) 1 /hpf (0-3) 05/11/17 06:01 Ur Squamous Epith Cells 3 /hpf (0-5) 05/11/17 06:01 Urine Bacteria Rare (<OCC) 05/11/17 06:01 - Hospital Course Hospital Course: Upon Admission: HPI: Patient is a 66 y/o lady with a PMH of DM present to the ER with a CC of chest pain and SOB for 2 day duration. It gets better with SL Nitro and worse with walking. She describes the pain as someone pressing hard on her chest. It radiates to the L. shoulder and is intermittent in timing. She has had chest pain before but denies prior episodes like this. She is complaining of fevers, chills, nausea, cough, diaphoresis, SOB, dizzy, weakness, visual and speech changes (Slurring), confusion and a GUAJARDO. She is also complaining of abdominal pain and leg pain. She denies Vomiting, Diarrhea and constipation or rash. She denies sick contracts or recent travel. PMH: DM, osteoporosis, back pain, arthritis, and is on home O2 but does not know why PSH: Open bayron, hysterectomy, R. breast bx, L. Pinky surgery, Carpal tunnel surgery, R. ovarian cyst removed FH: mom = heart and kidney problems, Dad = heart problems SH: , lives with son, daughter and granddaughter; smoked 2-3ppd for 50 years but quit 8 years ago. Meds: Albuterol inhaler, ventolin HFA, Proair, alprazolam, betamethasone, flexeriol, voltaran, furosemide, Novolog 70/30, levoceterizine dihydrochloride, lidoderm patch, montelukast, SL nitro, oxycodone, valsartan Allergies: ASA Code: FULL CODE Throughout Hospital Course: Patient was admitted for chest pain to r/o ACS. Patients cardiac enzymes where WNL, echo showed normal EF. Patient underwent cardiac cath with Dr. Mcbride. As per Dr. Mcbride, patient can be discharged and started on plavix, he will see the patient in 1month. She was resumed on her home medications for her history of DM , back pain and arthritis. As per Dr. Thomas patient is safe for discharge. This is a brief summary of the patients hospital course. Please review EMR for full record. Discharge Exam - Head Exam Head Exam: ATRAUMATIC - Eye Exam Eye Exam: Normal appearance, PERRL - ENT Exam ENT Exam: Mucous Membranes Moist - Respiratory Exam Respiratory Exam: NORMAL BREATHING PATTERN - Cardiovascular Exam Cardiovascular Exam: REGULAR RHYTHM - GI/Abdominal Exam GI & Abdominal Exam: Normal Bowel Sounds, Soft. absent: Unremarkable - Extremities Exam Extremities exam: normal inspection, pedal pulses present - Neurological Exam Neurological exam: Alert, CN II-XII Intact, Oriented x3 - Psychiatric Exam Psychiatric exam: Normal Affect, Normal Mood Discharge Plan - Discharge Medications Prescriptions: Clopidogrel [Plavix] 75 mg PO DAILY #30 tab - Follow Up Plan Condition: STABLE Disposition: HOME/ ROUTINE Additional Instructions: Patient is to continue taking her current medications including a new medication called Plavix 75mg by mouth EVERY DAY. She is to follow up with Dr. Thomas within 1 week. Please follow up with Dr. Mcbride in 1 month. Please return to the ED if your symptoms worsen or return. Paciente es continuar tomando renay medicamentos actuales, incluyendo un nuevo medicamento llamado Plavix 75 mg por va oral todos los garcia. Renay debe continuar con el Dr. Thomas dentro de ravin semana. Por favor, siga con el Dr. Mcbride en 1 mes. Por favor regrese a la [place] si renay sntomas empeoran o regresan. Referrals: Soren Thomas Jr., MD [Medical Doctor] - Goran Mcbride MD [Staff Provider] -
[2017-05-11 16:07] VITALS: BP 122/71; PULSE 65; RESP 20; TEMP 98; O2SAT 95
--- NOTE | 2017-05-11 21:48 | CP.PCM.PN ---
Subjective - Date & Time of Evaluation Date of Evaluation: 05/11/17 Time of Evaluation: 14:05 - Subjective Subjective: Patient s/p Cardiac cath Non obstructive coronaries Normal EF Medical management Objective - Vital Signs/Intake and Output Vital Signs (last 24 hours): Temp Pulse Resp BP Pulse Ox 98 F 65 20 122/71 95 05/11/17 16:05 05/11/17 16:05 05/11/17 16:05 05/11/17 17:57 05/11/17 16:05 - Labs Labs: 05/11/17 07:00 05/11/17 07:00 PT 12.2 SECONDS (9.7-12.2) 05/10/17 06:39 INR 1.1 05/10/17 06:39 APTT 30 SECONDS (21-34) 05/10/17 06:39
--- NOTE | 2017-05-13 09:11 | CARDCATH ---
PROCEDURE DATE: 05/11/2017 PROCEDURES: 1. Left heart catheterization. 2. Coronary angiogram. CLINICAL INDICATIONS: 1. Unstable angina. 2. Hypertension. 3. Diabetes. 4. Hyperlipidemia. REFERRING PHYSICIAN: Dr. Soren Thomas. PERFORMING PHYSICIAN: Dr. Goran Mcbride. PROCEDURE: After informed consent, the patient was prepped and draped in the usual sterile fashion. A 2% lidocaine was given in the right wrist per local anesthesia. Using micropuncture technique, 6-Persian sheath was introduced into the right radial artery. Using the usual diagnostic catheter, left heart catheterization and coronary angiogram was formed. The patient tolerated the procedure well. FINDINGS: 1. Left main coronary artery is patent. 2. Proximal LAD has 50% non-obstructed concentric stenosis. Mid, distal LAD and diagonal branches are patent. 3. Left circumflex and obtuse marginal branches are patent. 4. Right coronary artery is dominant and patent. 5. LV ejection fraction is 65%. No wall motion abnormalities noted. EDP is 21. No gradient across the aortic valve. IMPRESSION: 1. Nonobstructive coronaries. 2. Normal left ventricular systolic function. PLAN: Recommend medical management with risk factor modification. Goran Mcbride MD
== END 2017-05-11 19:08 | disposition home or self-care (01) | DRG 287 ==
LOC: C.ER 16:12 → C.9E 17:31 → C.6T 19:12
PROVIDERS: ADMIT Internal Medicine; ATTEND Internal Medicine
PROC: B201YZZ Plain Radiography of Multiple Coronary Arteries using Other Contrast (ICD-10-PCS; 2017-05-11)
PROC: B205YZZ Plain Radiography of Left Heart using Other Contrast (ICD-10-PCS; 2017-05-11)
PROC: 4A023N7 Measurement of Cardiac Sampling and Pressure, Left Heart, Percutaneous Approach (ICD-10-PCS; principal; 2017-05-11 10:00)
DX: I20.0 Unstable angina (principal); Z99.81 Dependence on supplemental oxygen; M19.90 Unspecified osteoarthritis, unspecified site; I10 Essential (primary) hypertension; J45.909 Unspecified asthma, uncomplicated; E78.00 Pure hypercholesterolemia, unspecified; M81.0 Age-related osteoporosis without current pathological fracture; I70.212 Atherosclerosis of native arteries of extremities with intermittent claudication, left leg; E11.9 Type 2 diabetes mellitus without complications; Z87.891 Personal history of nicotine dependence; Z79.4 Long term (current) use of insulin; J44.9 Chronic obstructive pulmonary disease, unspecified; E66.01 Morbid (severe) obesity due to excess calories; G89.29 Other chronic pain; M54.9 Dorsalgia, unspecified; Z90.49 Acquired absence of other specified parts of digestive tract